=== PATIENT | female | born 1980 | race Caucasian/White ===

== ENCOUNTER 2017-06-05 14:18 | Emergency (ER) | payer MEDICAID ==
[2017-06-05 14:19] VITALS: BMI 27.8
[2017-06-05 14:58] VITALS: BP 138/84; PULSE 78; TEMP 98.1; O2SAT 98
--- NOTE | 2017-06-05 16:48 | C.PDOC ---
Time Seen by Provider: 06/05/17 16:20 Chief Complaint (Nursing): Headache Past Medical History Vital Signs: Last Vital Signs Temp 98.1 F 06/05/17 14:55 Pulse 78 06/05/17 14:55 Resp 16 06/05/17 14:55 BP 138/84 06/05/17 14:55 Pulse Ox 98 06/05/17 14:55 - Medical History PMH: HTN (induced during ), Migraine - [facility] ARTIF RUPT MEMBRANES NEC (04/05/14) MANUAL ASSIST DELIV NEC (04/05/14) Family History: States: Unknown Family Hx - Social History Hx Tobacco Use: No Hx Alcohol Use: No Hx Substance Use: No - Immunization History Hx Tetanus Toxoid Vaccination: No Hx Influenza Vaccination: No Hx Pneumococcal Vaccination: No ED Course And Treatment O2 Sat by Pulse Oximetry: 98 Medical Decision Making Medical Decision Makin: went to evaluate patient, not on bed Disposition - Disposition
--- NOTE | 2017-06-05 16:50 | C.PDOC ---
Time Seen by Provider: 06/05/17 16:20 Chief Complaint (Nursing): Headache Past Medical History Vital Signs: Last Vital Signs Temp 98.1 F 06/05/17 14:55 Pulse 78 06/05/17 14:55 Resp 16 06/05/17 14:55 BP 138/84 06/05/17 14:55 Pulse Ox 98 06/05/17 14:55 - Medical History PMH: HTN (induced during ), Migraine - [facility] Procedures ARTIF RUPT [facility]BR[facility]ES NEC (04/05/14) MANUAL ASSIST DELIV NEC (04/05/14) Family History: States: Unknown Family Hx - Social History Hx Tobacco Use: No Hx Alcohol Use: No Hx Substance Use: No - Immunization History Hx Tetanus Toxoid Vaccination: No Hx Influenza Vaccination: No Hx Pneumococcal Vaccination: No ED Course And Treatment O2 Sat by Pulse Oximetry: 98 Medical Decision Making Medical Decision Makin: went to evaluate patient, patient not on bed Disposition - Disposition Forms: [employer] ([place])
--- NOTE | 2017-06-05 16:57 | C.PDOC ---
Time Seen by Provider: 06/05/17 16:20 Chief Complaint (Nursing): Headache Past Medical History Vital Signs: Last Vital Signs Temp 98.1 F 06/05/17 14:55 Pulse 78 06/05/17 14:55 Resp 20 06/05/17 16:58 BP 138/84 06/05/17 14:55 Pulse Ox 98 06/05/17 16:57 - Medical History PMH: HTN (induced during ), Migraine - [facility] Procedures ARTIF RUPT [facility]BR[facility]ES NEC (04/05/14) MANUAL ASSIST DELIV NEC (04/05/14) Family History: States: Unknown Family Hx - Social History Hx Tobacco Use: No Hx Alcohol Use: No Hx Substance Use: No - Immunization History Hx Tetanus Toxoid Vaccination: No Hx Influenza Vaccination: No Hx Pneumococcal Vaccination: No ED Course And Treatment O2 Sat by Pulse Oximetry: 98 Medical Decision Making Medical Decision Making: pt not found in stretcher. pt left without being seen, not found in stretcher on multiple occasions. Disposition - Disposition Disposition: LEFT W/O BEING SEEN - ER ONLY Disposition Time: 17:00 Condition: UNKNOWN Forms: [facility] ([place]) - Clinical Impression Clinical Impression: Patient left without being seen, Headache
[2017-06-05 16:58] VITALS: RESP 20
== END 2017-06-05 16:57 | disposition left against medical advice (07) ==
LOC: C.ER 14:18
DX: R51 Headache (principal); Z02.9 Encounter for administrative examinations, unspecified